=== PATIENT | female | born 1940 | race Asian ===

== ENCOUNTER 2017-02-19 07:24 | Emergency (ER) | payer OTHER ==
[~2017-02-19] VITALS: Ht 152.4 cm; Wt 52.0 kg
[2017-02-19 08:33] LABS: CLARITY URINE CLEAR (CLEAR); COLOR URINE YELLOW (YELLOW); GLUCOSE URINE NEGATIVE (NEGATIVE); KETONES URINE NEGATIVE (NEGATIVE); LEUKOCYTE ESTERASE URINE NEGATIVE (NEGATIVE); NITRITE URINE NEGATIVE (NEGATIVE); OCCULT BLOOD URINE 1+ (NEGATIVE); PH URINE 5.5 (4.5-8.0); PROTEIN URINE NEGATIVE (NEGATIVE); SPECIFIC GRAVITY URINE 1.024 (1.005-1.030); UROBILINOGEN URINE 0.2 E.U./dL (0.2-1.0)
[2017-02-19 08:33] LABS: BASOPHILS % 0.5 % (0.0-2.0); CHLORIDE 108 mEq/L (98-107); EOSINOPHILS % 0.9 % (0.0-5.0); HEMATOCRIT. 39.3 % (36.0-48.0); HEMOGLOBIN. 13.1 g/dL (12.0-16.0); LYMPHOCYTES % 20.7 % (20.0-50.0); MEAN CORPUSCULAR HEMOGLOBIN 30.5 pg (28.0-32.0); MEAN CORPUSCULAR VOLUME 91.4 fL (81.0-99.0); MEAN PLATELET VOLUME 7.6 fl (7.4-10.4); MONOCYTES % 5.9 % (2.0-8.0); PLATELET 190 x1000/uL (130-400); RED CELL DISTRIBUTION WIDTH 13.4 % (11.6-14.6)
[2017-02-19 08:44] LABS: CARBON DIOXIDE 30 mEq/L (21-32)
[2017-02-19] MEDS ORDERED: SODIUM CHLORIDE 0.9% 500 ML IV ONE (08:49)
[2017-02-19 10:00] VITALS: BP 148/76
== END 2017-02-19 10:15 | disposition home or self-care (01) ==
LOC: ER 07:29
DX: B34.9 Viral infection, unspecified (principal); I10 Essential (primary) hypertension
CPT/HCPCS: 36415; 71010; 80053; 81001; 85025; 93005; 96360; 99285; J7040; J7030

== ENCOUNTER 2018-01-06 06:51 | Emergency (ER) | payer OTHER ==
[~2018-01-06] VITALS: Ht 149.9 cm; Wt 54.0 kg
[~2018-01-06 06:51] MED LIST: BENA20TA3 PO; CHOL100044 PO
[2018-01-06] MEDS ORDERED: IBUPROFEN 600MG TABLET PO ONE (08:00)
[2018-01-06 11:29] VITALS: BP 129/76
== END 2018-01-06 11:30 | disposition home or self-care (01) ==
LOC: ER 07:26
DX: S83.92XA Sprain of unspecified site of left knee, initial encounter (principal); S09.8XXA Other specified injuries of head, initial encounter; I10 Essential (primary) hypertension; W01.0XXA Fall on same level from slipping, tripping and stumbling without subsequent striking against object, initial encounter; Y93.01 Activity, walking, marching and hiking; Y92.003 Bedroom of unspecified non-institutional (private) residence as the place of occurrence of the external cause; Y99.8 Other external cause status
CPT/HCPCS: 70450; 73562; 82962; 99284

== ENCOUNTER 2018-06-21 10:04 | Inpatient (IN) | payer OTHER ==
[~2018-06-21] VITALS: Ht 152.4 cm; Wt 52.6 kg
[~2018-06-21 10:04] MED LIST changes: +BENA20TA10 PO; -BENA20TA3 PO
[2018-06-21] MEDS ORDERED: FAMOTIDINE 20MG/2ML VIAL IV ONE (11:15)
[2018-06-21] MEDS ORDERED: ASPIRIN 81MG TABLET PO ONE (11:15)
[2018-06-21 11:27] LABS: BASOPHILS % 0.5 % (0.0-2.0); EOSINOPHILS % 1.3 % (0.0-5.0); HEMATOCRIT. 39.9 % (36.0-48.0); HEMOGLOBIN. 13.4 g/dL (12.0-16.0); LYMPHOCYTES % 22.5 % (20.0-50.0); MEAN CORPUSCULAR HEMOGLOBIN 31.1 pg (28.0-32.0); MEAN CORPUSCULAR VOLUME 92.3 fL (81.0-99.0); NEUTROPHILS % 68.7 % (40.0-76.0); PLATELET 246 x1000/uL (130-400); RED BLOOD CELL COUNT 4.32 mill/uL (4.2-5.4); RED CELL DISTRIBUTION WIDTH 13.3 % (11.6-14.6)
[2018-06-21 11:31] LABS: CHLORIDE 106 mEq/L (98-107)
[2018-06-21 11:33] LABS: PARTIAL THROMBOPLASTIN TIME 27.1 sec (23.4-31.0); PROTHROMBIN TIME 9.8 sec (9.1-11.1)
[2018-06-21 12:45] LABS: CLARITY URINE CLEAR (CLEAR); COLOR URINE YELLOW (YELLOW); KETONES URINE NEGATIVE (NEGATIVE); LEUKOCYTE ESTERASE URINE NEGATIVE (NEGATIVE); NITRITE URINE NEGATIVE (NEGATIVE); OCCULT BLOOD URINE 1+ (NEGATIVE); PH URINE 6.5 (4.5-8.0); PROTEIN URINE NEGATIVE (NEGATIVE); SPECIFIC GRAVITY URINE 1.019 (1.005-1.030); UROBILINOGEN URINE 0.2 E.U./dL (0.2-1.0)
[2018-06-21 13:49] VITALS: BP 145/58
[2018-06-21] MEDS ORDERED: NIFE30TA83 MT (13:49)
[2018-06-21] MEDS ORDERED: MAGNESIUM/ALUMINUM HYDROXIDE/SIMETHICONE 30ML UDC PO PRN (14:45)
[2018-06-21] MEDS ORDERED: ACETAMINOPHEN 650MG SUPP PR PRN (14:45)
[2018-06-21] MEDS ORDERED: ACETAMINOPHEN 325MG TABLET PO PRN (14:45)
[2018-06-21] MEDS ORDERED: ONDANSETRON HCL 4MG/2ML INJ IV PRN (14:45)
[2018-06-21] MEDS ORDERED: HYDROCODONE/ACETAMINOPHEN 10/325MG TABLET PO PRN (14:45)
[2018-06-21] MEDS ORDERED: ACETAMINOPHEN 650MG/20.3ML UDC GT PRN (14:45)
[2018-06-21] MEDS ORDERED: HYDROCODONE/ACETAMINOPHEN 5/325MG TABLET PO PRN (14:45)
[2018-06-21] MEDS: LOSARTAN POTASSIUM 25 MG TABLET PO SCH (15:10)
[2018-06-21 15:12] VITALS: BP 145/58
[2018-06-21 16:00] VITALS: BP 136/62
[2018-06-21 17:02] LABS: CHLORIDE 107 mEq/L (98-107)
[2018-06-21 19:48] VITALS: BP 136/65
[2018-06-21] MEDS ORDERED: PNEUMOCOCCAL 23-VAL P-SAC VAC 0.5 ML IM ONE (20:00)
[2018-06-21 22:09] LABS: *AMPHETAMINES SCREEN URINE NEGATIVE (NEGATIVE); *BARBITURATES SCREEN URINE NEGATIVE (NEGATIVE); *BENZODIAZEPINES SCREEN URINE NEGATIVE (NEGATIVE); *COCAINE SCREEN URINE NEGATIVE (NEGATIVE)
[2018-06-21 22:10] LABS: CANNABINOID URINE SCREEN NEGATIVE (NEGATIVE); METHADONE URINE SCREEN NEGATIVE (NEGATIVE); OPIATES URINE SCREEN NEGATIVE (NEGATIVE); PHENCYCLIDINE URINE SCREEN NEGATIVE (NEGATIVE)
[2018-06-21 23:36] LABS: CREATINE KINASE 80 IU/L (26-192)
[2018-06-21 23:37] LABS: CREATINE KINASE MB FRACTION 1.1 ng/mL (0.5-3.6)
[2018-06-22 00:46] VITALS: BP 143/64
[2018-06-22 04:29] VITALS: BP 123/44
[2018-06-22 06:41] LABS: BASOPHILS % 0.4 % (0.0-2.0); EOSINOPHILS % 1.6 % (0.0-5.0); HEMATOCRIT. 40.3 % (36.0-48.0); HEMOGLOBIN. 13.9 g/dL (12.0-16.0); MEAN CORPUSCULAR HEMOGLOBIN 31.7 pg (28.0-32.0); MEAN CORPUSCULAR VOLUME 91.9 fL (81.0-99.0); MEAN PLATELET VOLUME 7.1 fl (7.4-10.4); MONOCYTES % 6.2 % (2.0-8.0); NEUTROPHILS % 72.8 % (40.0-76.0); PLATELET 255 x1000/uL (130-400); RED BLOOD CELL COUNT 4.38 mill/uL (4.2-5.4); RED CELL DISTRIBUTION WIDTH 13.5 % (11.6-14.6)
[2018-06-22 06:55] LABS: CHLORIDE 107 mEq/L (98-107)
[2018-06-22 07:11] LABS: LDL CHOLESTEROL 143 mg/dL (5-100)
[2018-06-22 07:13] LABS: PHOSPHORUS 4.1 mg/dL (2.5-4.9)
[2018-06-22 07:15] LABS: HDL CHOLESTEROL 88 mg/dL (40-59)
[2018-06-22 07:18] LABS: CREATINE KINASE 91 IU/L (26-192); CREATINE KINASE MB FRACTION 1.2 ng/mL (0.5-3.6)
[2018-06-22 07:20] LABS: T4 FREE 1.27 ng/dL (0.76-1.46)
[2018-06-22 08:00] VITALS: BP 122/60
[2018-06-22] MEDS: LOSARTAN POTASSIUM 25 MG TABLET PO SCH ×2 (08:04→21:32)
[2018-06-22] MEDS ORDERED: REGADENOSON 0.4 MG/5 ML IV ONE ×2 (09:15→11:07)
[2018-06-22 12:00] VITALS: BP 127/71
[2018-06-22 16:00] VITALS: BP 121/60
[2018-06-22 16:51] LABS: CREATINE KINASE 113 IU/L (26-192)
[2018-06-22 16:52] LABS: CREATINE KINASE MB FRACTION 1.8 ng/mL (0.5-3.6)
[2018-06-22 16:56] LABS: T4 FREE 1.27 ng/dL (0.76-1.46)
[2018-06-22] MEDS ORDERED: DEXTROSE 50% WATER 50ML SYRINGE IV PRN (19:30)
[2018-06-22 20:00] VITALS: BP 113/51
[2018-06-22] MEDS: BLOOD SUGAR DIAGNOSTIC STRIP TEST SCH (21:35)
[2018-06-23] VITALS: BP 125/77
[2018-06-23 01:01] LABS: CREATINE KINASE 146 IU/L (26-192)
[2018-06-23 01:02] LABS: CREATINE KINASE MB FRACTION 2.5 ng/mL (0.5-3.6)
[2018-06-23 04:00] VITALS: BP 118/64
[2018-06-23] MEDS: BLOOD SUGAR DIAGNOSTIC STRIP TEST SCH ×3 (07:40→17:29)
[2018-06-23 08:00] VITALS: BP 129/47
[2018-06-23] MEDS: LOSARTAN POTASSIUM 25 MG TABLET PO SCH (08:19)
[2018-06-23 08:54] LABS: BASOPHILS % 0.3 % (0.0-2.0); EOSINOPHILS % 1.1 % (0.0-5.0); HEMATOCRIT. 38.8 % (36.0-48.0); HEMOGLOBIN. 12.9 g/dL (12.0-16.0); LYMPHOCYTES % 20.7 % (20.0-50.0); MEAN CORPUSCULAR HEMOGLOBIN 31.1 pg (28.0-32.0); MEAN CORPUSCULAR VOLUME 93.4 fL (81.0-99.0); MEAN PLATELET VOLUME 7.3 fl (7.4-10.4); MONOCYTES % 6.7 % (2.0-8.0); NEUTROPHILS % 71.2 % (40.0-76.0); PLATELET 238 x1000/uL (130-400); RED BLOOD CELL COUNT 4.15 mill/uL (4.2-5.4); RED CELL DISTRIBUTION WIDTH 13.4 % (11.6-14.6)
[2018-06-23] MEDS ORDERED: ASPIRIN 81MG TABLET PO SCH (09:00)
[2018-06-23 09:09] LABS: CHLORIDE 110 mEq/L (98-107)
[2018-06-23 09:19] LABS: PHOSPHORUS 2.9 mg/dL (2.5-4.9)
[2018-06-23 09:21] LABS: CREATINE KINASE 165 IU/L (26-192)
[2018-06-23 09:26] LABS: CREATINE KINASE MB FRACTION 2.5 ng/mL (0.5-3.6)
[2018-06-23 12:00] VITALS: BP 136/62
[2018-06-23] MEDS ORDERED: POTASSIUM CHLORIDE 20MEQ TABLET SR PO NR (16:00)
[2018-06-23 16:01] VITALS: BP 130/61
[2018-06-23 17:11] VITALS: BP 132/60
== END 2018-06-23 18:03 | disposition home or self-care (01) | DRG 641 ==
LOC: ER 10:04 → 7WST 11:25 → EDBEDREQTM 11:33 → EDBEDREQ 11:33 → ENRESERV 12:36 → 7WST 06-22 19:54
PROVIDERS: ADMIT Internal Medicine; ATTEND Internal Medicine
DX: E16.2 Hypoglycemia, unspecified (principal); I24.9 Acute ischemic heart disease, unspecified; E78.5 Hyperlipidemia, unspecified; I10 Essential (primary) hypertension; Z79.899 Other long term (current) drug therapy; Z88.6 Allergy status to analgesic agent
CPT/HCPCS: 36415; 71045; 78452; 80048; 80053; 80061; 80305; 81003; 82550; 82553; 82962; 83036; 83690; 83735; 83880; 84100; 84439; 84443; 84481; 84484; 85025; 85379; 85610; 85730; 90732; 93005; 93017; 93306; 93970; 96374; 97162; 99285; A9500; J2785; J3490

== ENCOUNTER 2018-08-13 10:02 | Emergency (ER) | payer OTHER ==
[~2018-08-13] VITALS: Ht 152.4 cm; Wt 57.0 kg
[~2018-08-13 10:02] MED LIST changes: -BENA20TA10 PO; +NIFE30TA83 MT
[2018-08-13 11:58] LABS: BASOPHILS % 0.5 % (0.0-2.0); EOSINOPHILS % 1.3 % (0.0-5.0); HEMATOCRIT. 40.5 % (36.0-48.0); HEMOGLOBIN. 13.5 g/dL (12.0-16.0); MEAN CORPUSCULAR HEMOGLOBIN 30.8 pg (28.0-32.0); MEAN CORPUSCULAR VOLUME 92.6 fL (81.0-99.0); MEAN PLATELET VOLUME 7.3 fl (7.4-10.4); MONOCYTES % 8.6 % (2.0-8.0); NEUTROPHILS % 64.6 % (40.0-76.0); PLATELET 217 x1000/uL (130-400); RED BLOOD CELL COUNT 4.37 mill/uL (4.2-5.4); RED CELL DISTRIBUTION WIDTH 13.1 % (11.6-14.6)
[2018-08-13 12:00] LABS: CLARITY URINE CLEAR (CLEAR); COLOR URINE YELLOW (YELLOW); KETONES URINE NEGATIVE (NEGATIVE); LEUKOCYTE ESTERASE URINE NEGATIVE (NEGATIVE); NITRITE URINE NEGATIVE (NEGATIVE); OCCULT BLOOD URINE TRACE (NEGATIVE); PH URINE 6.5 (4.5-8.0); PROTEIN URINE NEGATIVE (NEGATIVE); SPECIFIC GRAVITY URINE 1.022 (1.005-1.030); UROBILINOGEN URINE 0.2 E.U./dL (0.2-1.0)
[2018-08-13 12:02] LABS: CHLORIDE 108 mEq/L (98-107)
[2018-08-13 12:54] VITALS: BP 146/64
== END 2018-08-13 12:57 | disposition home or self-care (01) ==
LOC: ER 10:39
DX: R53.1 Weakness (principal); I10 Essential (primary) hypertension
CPT/HCPCS: 36415; 71045; 82962; 87804; 99284